=== PATIENT | male | born 1955 | race Caucasian/White ===

== ENCOUNTER 2022-01-21 09:29 | Inpatient (IN) | payer MEDICARE, MEDICAID ==
[~2022-01-21] VITALS: Ht 182.9 cm; Wt 131.8 kg
--- NOTE | 2022-01-21 08:30 | NUR ---
Pt arrived via EMS, awake to name, knows that he is at a hospital. D10 fluids infusing, Dr English on unit to give orders. IV in place C/D/I.
[2022-01-21 09:20] VITALS: BP 151/92
[~2022-01-21 09:29] MED LIST: AMIO200T53 PO; BACL20TA PO; CARV25TA2 PO; CLOP75TA PO; DABI150C PO; DOCU100C28 PO; DULA1.5P SQ; ERGO500089 PO; ESCITALOPRAM OX10 MG PO; FERR325T14 PO; FLUTICASONE FUROATE INH; FOLI0.8C PO; HYDR2TAB PO; HYDR4TAB PO; INSU100V38 SQ; IPRA0.2S5 NEB; ISOS60TA55 PO; LEVO100T5 PO; LIPITOR80 MG PO; MONT10TA49 PO; OXYC5CAP PO; PANT40TA77 PO; PREG-9 PO; RANITIDINE HCL; RANO10002 PO; SENN1TAB37 PO; TAMS0.4C97 PO; [UNRECOGNIZED DRUG - CODE] PO
[2022-01-21 10:00] VITALS: BP 135/68
[2022-01-21] MEDS ORDERED: IPRATROPIUM BROMIDE 0.5 MG/2.5 ML NEBU. NEB PRN (10:00)
[2022-01-21 11:00] VITALS: BP 128/64
[2022-01-21] MEDS: INSULIN LISPRO 300 UNITS/3 ML VIAL. SQ SCH ×2 (11:23→17:00)
[2022-01-21] MEDS ORDERED: IV NORMAL SALINE 1000ML BAG 1,000 ML IV ONE (11:30)
--- NOTE | 2022-01-21 13:22 | HP ---
DATE OF SERVICE: 01/21/2022 ADMIT DATE: 01/21/2022 HISTORY OF PRESENT ILLNESS: The patient is a 66-year-old male patient who is a resident at [facility] who was brought to the Emergency Room of [facility] with altered mental status and hypoglycemia. She has been a resident at [facility] since 08/26/2021. He was found to have mental status change. The patient at the correction was found to have hypoglycemia with a blood glucose of 56, was given oral glucose, but no significant change in his mental status. Paramedics advised on their arrival that his glucose check was only 21 mg. After a bolus of D10 at 150 mL, the patient's mental status improved. He reportedly has had no recent change in his diabetic medication. On further evaluation in the Emergency Room, he apparently required 3 additional doses of D50 to maintain his blood sugar within acceptable range and he was found also to be hypothermic with a temperature down to 93.4. He was initially admitted to [facility], but eventually a decision was made to transfer him to [facility] ICU for rewarming with a Waldo Hugger and also to continue with D10W. When I saw him on arrival here, he was sleepy, but arousable. He answered his question appropriately and even knew that he was at [facility]. He has extensive investigation done in the Emergency Room of [facility]. His CBC showed that he has normochromic normocytic anemia. His chemistry was remarkable for mild hypokalemia and chronic kidney disease with a serum creatinine of 2.4. However, his baseline is about 1.6. He has had imaging studies done, which included CT scan of the head, which showed no evidence of acute intracranial process, white matter changes, likely chronic small vessel disease. His chest x-ray showed that the heart is moderately enlarged. Stable cardiac generator that obscures the portion of the left chest with leads in stable position. Mediastinal and hilar contours are stable, patchy bibasilar airspace opacities are grossly stable. No pleural effusion or pneumothorax. The patient was therefore transferred to [facility] with hypothermia and hypoglycemia. PAST MEDICAL HISTORY: Significant for type 2 diabetes mellitus, longstanding hypertension, hyperlipidemia, coronary artery disease status post myocardial infarction. He underwent percutaneous coronary intervention with stent deployment x9. According to him in 2018, he has also coronary artery bypass graft surgery and cardiac arrest x2. He apparently had left upper extremity compartment syndrome that required fasciotomy, has lung nodules that is followed closely, had acute kidney injury twice, once with compartment syndrome when he was at [facility] for 2 months and a year ago, he developed another episode of acute kidney injury, treated with IV fluid. He is also known to have benign prostatic hypertrophy, TIA, chronic obstructive pulmonary disease, obstructive sleep apnea. He is currently on 2 liters of oxygen by nasal cannula. PAST SURGICAL HISTORY: Significant for PCI with stent deployment x9, coronary artery bypass graft surgery, fasciotomy, L4-L5 laminectomy and partial thyroidectomy. ALLERGIES: HE IS ALLERGIC TO LEVOFLOXACIN AND NIACIN. FAMILY HISTORY: He has one sister who has coronary artery disease. His father in his 60s and the mother who in her 60s due to congestive heart failure. SOCIAL HISTORY: He is , has 2 daughters alive, has one daughter when she was only 4 months old. One son because of congenital heart disease at the age of 10 years and 1 son was electrocuted. He continues to smoke about 6 cigarettes a day. He does not drink alcohol or use recreational drugs. He is currently retried. 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 MEDICATIONS: He was on albuterol sulfate by nebulizer 4 times a day, ferrous sulfate 325 mg once a day, Pradaxa 150 mg twice a day, Plavix 75 mg once a day, amiodarone 200 mg once a day. He is on Ranexa 1000 mg twice a day, atorvastatin calcium 80 mg at bedtime, isosorbide mononitrate 60 mg daily, carvedilol 12.5 mg twice a day, hydromorphone 2 mg p.o. b.i.d. and hydromorphone 0.5 mg at noon. He is on oxycodone 10 mg extended release twice a day and oxycodone immediate release 5 mg at noon, pregabalin 150 mg twice a day, escitalopram oxalate 10 mg daily, bumetanide 2 mg daily, montelukast 10 mg once a day, ranitidine 150 mg, he gets actually 300 mg once a day with meals. He is also on Jardiance 10 mg daily and levothyroxine sodium 300 mcg once a day. REVIEW OF SYSTEMS: As per history of present illness. PHYSICAL EXAMINATION: GENERAL: On arrival to the Emergency Room, the patient was somewhat pale, but no jaundice, cyanosis or thyromegaly. No jugular venous distention. No lower limb edema. VITAL SIGNS: His heart rate was 76, blood pressure 153/87, temperature was 93.4, respiratory rate was 16 and oxygen saturation was 93% on room air. HEAD, EYES, EARS, NOSE, AND THROAT: Showed normocephalic, atraumatic. NECK: Supple. HEART: Showed normal first and second heart sounds. No gallop, rub or murmur. CHEST: Showed central trachea, equal bilateral chest expansion, air entry, vesicular breath sounds with scattered rhonchi and bibasilar crackles bilaterally. ABDOMEN: Soft, nontender. No guarding or rigidity. No organomegaly. All hernial orifice intact. Bowel sounds normal. NEUROLOGIC: The patient was alert and oriented x 3, moves all extremities , plantar is sensory: No new focal deficits reported. LABORATORY DATA: While in the Emergency Room, has had lab work done, which showed a white cell count of 7.6, hemoglobin 11.6, hematocrit 34.5, MCV 101 and platelet count of 189,000. When he arrived to the Emergency Room, his blood sugar was 129 mg/dL, his serum sodium was 144, potassium 3.4, chloride 103, bicarbonate 36, anion gap of 5, BUN 47, creatinine 2.8. Estimated GFR was 22 mL per minute. His glucose 104, calcium was 8.7. Total bilirubin, AST, ALT, alkaline phosphatase were normal. His troponin I high sensitivity was 12. His total protein 6.6, albumin 3. Urinalysis showed the urine was yellow, clear with a pH of 7, specific gravity of 1.020. The urine was negative for protein, glucose, ketones, blood, and nitrite was negative also for leukocyte esterase, 0 rbc's, 0 wbc's and no bacteria. His influenza A and B were negative and his coronavirus by rapid antigen testing was negative. DIAGNOSTIC DATA: His CT scan of the head showed the patient has no evidence of acute intracranial process, white matter changes, likely chronic small vessel disease. His chest x-ray showed the heart is moderately enlarged and stable cardiac generator pack obscures a portion of the left chest wall with leads in stable position. Mediastinal and hilar contours are stable. Patchy bibasilar airspace opacities are grossly stable. No pleural effusion or pneumothorax. PLAN: My plan is to continue with D10W, continue to monitor his blood sugar hourly and once stabilized and the patient is able to eat and drink, we will start him on all his medications. I will definitely obviously hold any nephrotoxic medication. Once he becomes normothermic, he can be transferred to the floor. ZITA/HUGO DR: Cydney TID: [id number]
[2022-01-21 15:00] VITALS: BP 127/72
[2022-01-21] MEDS: CLOPIDOGREL BISULFATE 75 MG TABLET PO SCH (18:15)
[2022-01-21] MEDS: CARVEDILOL 12.5 MG TABLET. PO SCH (18:15)
[2022-01-21] MEDS: PANTOPRAZOLE 40 MG TABLET.DR. PO SCH (18:16)
[2022-01-21] MEDS: oxyCODONE IR 5 MG TABLET PO PRN (18:16)
[2022-01-21] MEDS: FERROUS SULFATE 325 MG TABLET. PO SCH (18:16)
[2022-01-21] MEDS: IV DEXTROSE 10% 1,000 ML IV SCH (18:17)
[2022-01-21 19:00] VITALS: BP 115/50
--- NOTE | 2022-01-21 19:28 | NUR ---
Spoke with Nurse at [facility], says pt tested positive for covid 19 on Nov 17, 2021. Reported to CNO Verenice Longoria, isolation not indicated.
[2022-01-21] MEDS: BACLOFEN 10 MG TABLET. PO SCH (21:33)
[2022-01-21] MEDS: DABIGATRAN ETEXILATE 150 MG CAPSULE. PO SCH (21:33)
[2022-01-21] MEDS: MONTELUKAST SODIUM 10 MG TABLET. PO SCH (21:33)
[2022-01-21] MEDS: RANOLAZINE 500 MG TAB.ER.12H PO SCH (21:33)
[2022-01-21] MEDS: HYDROmorphone 2 MG TABLET PO SCH (21:34)
[2022-01-21] MEDS: PREGABALIN 75 MG CAPSULE PO SCH (21:34)
[2022-01-21] MEDS: SENNOSIDES/DOCUSATE 8.6/50MG TABLET. PO SCH (21:34)
[2022-01-21] MEDS: ATORVASTATIN CALCIUM 40 MG TABLET. PO SCH (21:34)
[2022-01-21] MEDS: TAMSULOSIN 0.4 MG CAP.ER.24H. PO SCH (21:34)
[2022-01-21] MEDS: DOCUSATE SODIUM 100 MG CAPSULE. PO SCH (21:34)
[2022-01-21 23:00] VITALS: BP 133/66
[2022-01-22] VITALS (7 sets, daily range): BP systolic 115–133; BP diastolic 50–65
[2022-01-22] MEDS: IV DEXTROSE 10% 1,000 ML IV SCH ×2 (00:50→12:00)
[2022-01-22 05:26] LABS: BASO # 0.1 x10^3/uL (0.0-0.2); BASO % 1 % (0-3); EOS # 0.1 x10^3/uL (0.0-0.7); EOS % 1 % (0-3); HEMATOCRIT 31.3 % (39.0-53.0); HEMOGLOBIN 10.2 g/dL (13.0-17.5); LYMPH # 1.6 x10^3/uL (1.0-4.8); LYMPH % 20 % (24-48); MEAN CORPUSCULAR HEMOGLOBIN 33 pg (25-35); MEAN CORPUSCULAR HGB CONC 33 g/dL (31-37); MEAN CORPUSCULAR VOLUME 102 fL (79-100); MONO # 0.7 x10^3/uL (0.0-1.1); MONO % 9 % (0-9); NEUT # 5.7 x10^3/uL (1.8-7.7); NEUT % 69 % (31-73); PLATELET COUNT 193 x10^3/uL (140-400); RED BLOOD COUNT 3.07 x10^6/uL (4.30-5.70); RED CELL DISTRIBUTION WIDTH 16.6 % (11.5-14.5); WHITE BLOOD COUNT 8.2 x10^3/uL (4.0-11.0)
[2022-01-22 06:28] LABS: ALBUMIN 2.8 g/dL (3.4-5.0); ALBUMIN/GLOBULIN RATIO 0.7 (1.0-1.7); CALCIUM 8.7 mg/dL (8.5-10.1); CREATININE 2.4 mg/dL (0.7-1.3); GFR 27.1; POTASSIUM 4.3 mmol/L (3.5-5.1); TOTAL BILIRUBIN 0.4 mg/dL (0.2-1.0)
[2022-01-22] MEDS: LEVOTHYROXINE 100 MCG TABLET PO SCH (06:29)
[2022-01-22] MEDS: INSULIN LISPRO 300 UNITS/3 ML VIAL. SQ SCH ×3 (08:00→17:45)
[2022-01-22] MEDS: ISOSORBIDE MONONITRATE ER 30 MG TAB.ER.24H PO SCH (08:28)
[2022-01-22] MEDS: HYDROmorphone 2 MG TABLET PO SCH ×2 (08:29→20:57)
[2022-01-22] MEDS: DABIGATRAN ETEXILATE 150 MG CAPSULE. PO SCH ×2 (08:29→20:57)
[2022-01-22] MEDS: CLOPIDOGREL BISULFATE 75 MG TABLET PO SCH (08:29)
[2022-01-22] MEDS: RANOLAZINE 500 MG TAB.ER.12H PO SCH ×2 (08:30→20:58)
[2022-01-22] MEDS: CARVEDILOL 12.5 MG TABLET. PO SCH ×2 (08:31→17:33)
[2022-01-22] MEDS: FOLIC ACID 1 MG TABLET. PO SCH (08:31)
[2022-01-22] MEDS: CYANOCOBALAMIN (VITAMIN B-12) 1,000 MCG TABLET. PO SCH (08:31)
[2022-01-22] MEDS: FERROUS SULFATE 325 MG TABLET. PO SCH (08:31)
[2022-01-22] MEDS: AMIODARONE HCL 200 MG TABLET. PO SCH (08:31)
[2022-01-22] MEDS: FAMOTIDINE 20 MG TABLET. PO SCH (08:32)
[2022-01-22] MEDS: CITALOPRAM 20 MG TABLET. PO SCH (08:32)
[2022-01-22] MEDS: FLUTICASONE 50MCG/NASAL SPRAY 16GM BOTTLE. NS SCH (08:32)
[2022-01-22] MEDS: DOCUSATE SODIUM 100 MG CAPSULE. PO SCH ×2 (08:32→20:58)
[2022-01-22] MEDS: PANTOPRAZOLE 40 MG TABLET.DR. PO SCH (08:32)
[2022-01-22] MEDS ORDERED: IV NORMAL SALINE 500ML BAG 500 ML IV ONE (09:15)
--- NOTE | 2022-01-22 09:36 | PN ---
DATE: 01/22/2022 SUBJECTIVE: The patient is awake, alert. On questioning him, he denied any complaint and would like to go back to [place]. PHYSICAL EXAMINATION: GENERAL: When I examined him, he looked well and was clearly in no apparent respiratory distress, pale, not jaundiced or cyanosed, no lymphadenopathy, no thyromegaly, no jugular venous distention. No lower limb edema. VITAL SIGNS: His heart rate was 67, blood pressure was 133/58, temperature was 97.7, respiratory rate was 22. His oxygen saturation was 98% on room air. HEAD, EYES, EARS, NOSE, AND THROAT: Normocephalic, atraumatic. NECK: Supple. HEART: Showed normal first and second heart sounds. No gallop or murmur. CHEST: Clear to auscultation. No crepitation or rhonchi. ABDOMEN: Distended, soft, nontender. NEUROLOGIC: He is awake, alert, responding appropriately. All cranial nerves intact. He moves extremities without difficulty. He usually ambulates with a walker, but is able to ambulate without any assistance or assistive devices for short distances. His intake was 3300, output was 2075. LABORATORY DATA: This morning showed a white cell count of 8.2, hemoglobin 10, hematocrit 31, MCV 102 and platelet count of 193,000. His chemistry showed a serum sodium 136, potassium 4.3, chloride 97, bicarbonate 31, anion gap of 8, BUN 39, creatinine 2.4. His estimated GFR was 27 mL per minute. His glucose 192, calcium was 8.7. Total bilirubin, AST, ALT, alkaline phosphatase were normal. Total protein 7, albumin was 2.8. ASSESSMENT: 1. Intractable hypoglycemia, resolved. The patient was on D10 and his blood sugar has finally normalized. His blood sugar this morning was 140. 2. Acute on chronic kidney injury. His creatinine went up from 1.6 to 2.8, this morning is down to 2.4. 3. The patient has multiple other medical problems including: A. Type 2 diabetes mellitus. B. Hypertension. C. Hyperlipidemia. D. Coronary artery disease status post myocardial infarction. E. He underwent PCI and coronary artery bypass graft surgery. PLAN: He is normally on Trulicity at [place] and he is also on Humalog insulin 3 units before meals. I will consult the physical and occupational therapy. We will continue with IV fluid in the form of normal saline and I will be discharged back to [facility] tomorrow. His kidney function has returned back to baseline. SUNDAR/LASHONDA DR: Cydney TID: [id number]
[2022-01-22 13:42] LABS: CALCIUM 8.7 mg/dL (8.5-10.1); CREATININE 2.3 mg/dL (0.7-1.3); GFR 28.4; POTASSIUM 3.6 mmol/L (3.5-5.1)
--- NOTE | 2022-01-22 16:17 | NUR ---
SS following for discharge planning. SS reviewed pt chart and discussed with pt RN. Pt is LTC resident from [facility], ; fax [phone]. Pt is currently on room air. Clinical updates phoned and faxed to [facility]. Possible discharge back to facility tomorrow. Per facility, no COVID19 test required as pt is within his 90 days. SS will continue to follow for discharge planning.
[2022-01-22] MEDS: ATORVASTATIN CALCIUM 40 MG TABLET. PO SCH (20:57)
[2022-01-22] MEDS: PREGABALIN 75 MG CAPSULE PO SCH (20:57)
[2022-01-22] MEDS: MONTELUKAST SODIUM 10 MG TABLET. PO SCH (20:58)
[2022-01-22] MEDS: SENNOSIDES/DOCUSATE 8.6/50MG TABLET. PO SCH (20:58)
[2022-01-22] MEDS: BACLOFEN 10 MG TABLET. PO SCH (20:58)
[2022-01-22] MEDS: TAMSULOSIN 0.4 MG CAP.ER.24H. PO SCH (20:58)
[2022-01-23 03:00] VITALS: BP 133/59
[2022-01-23] MEDS: LEVOTHYROXINE 100 MCG TABLET PO SCH (06:09)
[2022-01-23 06:54] LABS: CREATININE 1.9 mg/dL (0.7-1.3); GFR 35.4; POTASSIUM 3.5 mmol/L (3.5-5.1)
[2022-01-23 07:00] VITALS: BP 136/54
--- NOTE | 2022-01-23 08:40 | SNU/HH DC ---
DISCHARGE ORDERS DISCHARGE INFORMATION: DISCHARGE DATE: Jan 23, 2022 FINAL DIAGNOSIS hypoglycemia A/C KIDNEY INJURY CONDITION ON DISCHARGE: Stable CODE STATUS: Code Status: Full HALF-WAY: SNF STAY <30 DAYS: No POST DISCHARGE ORDERS: ACTIVITY ORDERS: Resume previous activity, Activity as tolerated DIET AFTER DISCHARGE: ADA DISCHARGE MEDICATIONS: Home Meds Reported Medications Hydromorphone Hcl (HYDROMORPHONE HCL) 2 Mg Tablet, 2 MG PO BID for pain, TAB 07/16/20 [fluticasone fur.] No Conflict Check, 1 INH DAILY for COPD 07/15/20 Escitalopram Oxalate (ESCITALOPRAM OXALATE) 10 Mg Tablet, 1 TAB PO DAILY for mood , #30 TAB 3 Refills 07/14/20 Docusate Sodium (DOCUSATE SODIUM) 100 Mg Capsule, 1 CAP PO BID for constipation for 7 Days, #14 CAP 0 Refills 07/14/20 Baclofen (BACLOFEN) 20 Mg Tablet, 1 TAB PO HS for muslce relaxer , #90 TAB 2 Refills 07/14/20 Sennosides/Docusate Sodium (SENNOSIDES-DOCUSATE SODIUM TAB) 1 Each Tablet, 2 TAB PO HS for constipation for 30 Days, #60 TAB 0 Refills 07/14/20 Pregabalin (LYRICA) 75 Mg Capsule, 1 CAP PO HS for pain , #60 CAP 1 Refill 07/14/20 Oxycodone Hcl (OXYCODONE HCL) 5 Mg Capsule, 10 MG PO TID PRN for PAIN, TAB 0 Refills 07/14/20 Ipratropium [place] (IPRATROPIUM BROMIDE) 0.2 Mg/1 Ml Solution, 1 VIAL NEB QID PRN for SHORTNESS OF BREATH, #300 ML 5 Refills 07/14/20 Carvedilol (CARVEDILOL) 25 Mg Tablet, 12.5 MG PO BIDWMEALS for CARDIAC, TAB 07/14/20 Atorvastatin Calcium (LIPITOR) 80 Mg Tablet, 1 TAB PO DAILY for cholesterol lowering agent , #30 TAB 5 Refills 07/14/20 Tamsulosin Hcl (FLOMAX) 0.4 Mg Cap.er.24h, 0.4 MG PO HS for BPH, TAB 07/14/20 Ranolazine (RANEXA) 1,000 Mg Tab.er.12h, 1 TAB PO BID for Angina for 30 Days, #60 TAB 0 Refills 07/14/20 [Ranitidine HCL] No Conflict Check, 300 MG DAILY for GERD 07/14/20 Pantoprazole Sodium (PANTOPRAZOLE SODIUM ) 40 Mg Tablet.dr, 40 MG PO DAILYAC for GERD, TAB 07/14/20 Montelukast Sodium (MONTELUKAST SODIUM TABLET ) 10 Mg Tablet, 10 MG PO HS for FOR ASTHMA, TAB 0 Refills 07/14/20 Mecobalamin (B-12) 5,000 Mcg Tab.rapdis, 5000 MCG PO DAILY for supplement , TAB 07/14/20 Levothyroxine Sodium (LEVOTHYROXINE SODIUM) 100 Mcg Tablet, 3 TAB PO DAILY for thyroid supplement , #30 TAB 5 Refills 07/14/20 Isosorbide Mononitrate (ISOSORBIDE MONONITRATE ER) 60 Mg Tab.er.24h, 1 TAB PO DAILY for nitrate, heart medication , #30 TAB 5 Refills 07/14/20 Insulin Lispro (Insulin Lispro) 100 Unit/1 Ml Vial, 3 UNIT SQ TIDAC for diabetes , EACH 07/14/20 Folic Acid (Folic Acid) 0.8 Mg Capsule, 1 CAP PO DAILY for supplement for 30 Da ys, #30 CAP 0 Refills 07/14/20 Ferrous Sulfate (FERROUS SULFATE) 325 Mg Tablet, 1 TAB PO DAILY for iron sup plement , #30 TAB 3 Refills 07/14/20 Ergocalciferol (Vitamin D2) (Vitamin D2) 1,250 Mcg Capsule, 1250 MCG PO TWICE WEEKLY for supplement , CAP 07/14/20 Dulaglutide (Trulicity) 1.5 Mg/0.5 Ml Pen.injctr, 1.5 MG SQ QTU for diabetes, EACH 07/14/20 Dabigatran Etexilate Mesylate (PRADAXA) 150 Mg Capsule, 1 CAP PO BID for blood thinner , #180 CAP 1 Refill 07/14/20 Clopidogrel Bisulfate (CLOPIDOGREL) 75 Mg Tablet, 1 TAB PO DAILY for blood thinner , #90 TAB 1 Refill 07/14/20 Amiodarone Hcl (AMIODARONE HCL) 200 Mg Tablet, 1 TAB PO DAILY for heart rhythm , #90 TAB 1 Refill 07/14/20 CATALINA HEALY MD Jan 23, 2022 08:40
[2022-01-23] MEDS: CYANOCOBALAMIN (VITAMIN B-12) 1,000 MCG TABLET. PO SCH (09:00)
[2022-01-23] MEDS: FERROUS SULFATE 325 MG TABLET. PO SCH (09:00)
[2022-01-23] MEDS: FAMOTIDINE 20 MG TABLET. PO SCH (09:00)
[2022-01-23] MEDS: oxyCODONE IR 5 MG TABLET PO PRN ×2 (09:01→15:54)
[2022-01-23] MEDS: CLOPIDOGREL BISULFATE 75 MG TABLET PO SCH (09:01)
[2022-01-23] MEDS: PANTOPRAZOLE 40 MG TABLET.DR. PO SCH (09:01)
[2022-01-23] MEDS: AMIODARONE HCL 200 MG TABLET. PO SCH (09:01)
[2022-01-23] MEDS: RANOLAZINE 500 MG TAB.ER.12H PO SCH (09:01)
[2022-01-23] MEDS: DABIGATRAN ETEXILATE 150 MG CAPSULE. PO SCH (09:02)
[2022-01-23] MEDS: CITALOPRAM 20 MG TABLET. PO SCH (09:02)
[2022-01-23] MEDS: FOLIC ACID 1 MG TABLET. PO SCH (09:02)
[2022-01-23] MEDS: CARVEDILOL 12.5 MG TABLET. PO SCH ×2 (09:02→17:00)
[2022-01-23] MEDS: HYDROmorphone 2 MG TABLET PO SCH (09:02)
[2022-01-23] MEDS: ISOSORBIDE MONONITRATE ER 30 MG TAB.ER.24H PO SCH (09:02)
[2022-01-23] MEDS: DOCUSATE SODIUM 100 MG CAPSULE. PO SCH (09:02)
[2022-01-23] MEDS: FLUTICASONE 50MCG/NASAL SPRAY 16GM BOTTLE. NS SCH (09:03)
[2022-01-23] MEDS: INSULIN LISPRO 300 UNITS/3 ML VIAL. SQ SCH ×2 (09:07→13:46)
--- NOTE | 2022-01-23 09:25 | DS ---
DATE OF DISCHARGE: 01/23/2022 HOSPITAL COURSE: The patient is a 66-year-old male patient, a [facility] at [facility], who was brought to the Emergency Room of [facility] with altered mental status and was found to be hypoglycemic. His blood sugar at the custodial was 56 and was given oral glucose, but no significant change in his mental status. Paramedics advised on their arrival that his blood glucose check was only 21 mg. After a bolus of D10 of 150 mL, the patient's mental status improved; however, he continued to require D10W and therefore, the patient was transferred to [facility] as he was found to be also hypothermic. He was admitted to the ICU where he was continued on D10W infusion and was started on Waldo Hugger. His blood sugar eventually stabilized. The patient's mental status improved. He is able to eat and drink. His temperature has normalized. When I saw him this morning, he was resting slightly propped up in bed, in no apparent respiratory distress. He is awake, alert, responding appropriately. On questioning him, he denied any complaint. The nursing staff did not voice any concern. His blood sugar is well within normal range. He also was noted to have acute kidney injury. His baseline creatinine was about 1.8 and when he came, his creatinine went up to 2.8. I did start him on IV fluid. His kidney function has finally returned back to its baseline and therefore, he is now normoglycemic and normothermic. His kidney function has stabilized and back to baseline and therefore, decision was made to discharge him back to [facility]. PHYSICAL EXAMINATION: GENERAL: When I saw him this morning, he looked well and was clearly in no apparent respiratory distress. No pallor, jaundice, cyanosis or thyromegaly. No jugular venous distention. No lower limb edema. VITAL SIGNS: His heart rate was 69, blood pressure was 133/59, temperature 97.7, respiratory rate 22, and oxygen saturation was 96%. HEAD, EYES, EARS, NOSE, AND THROAT: Normocephalic, atraumatic. NECK: Supple. HEART: Showed normal first and second heart sounds. No gallop or murmur. CHEST: Clear to auscultation, no crepitation or rhonchi. ABDOMEN: Distended, soft, nontender. NEUROLOGIC: He is awake, alert, responding appropriately. All cranial nerves are intact. He moves extremities without difficulty. He ambulates with a walker. His intake over the last 24 hours was 3300, output was 2075. LABORATORY DATA: His chemistry this morning showed a serum sodium 140, potassium 3.5, chloride 108, bicarbonate 27, anion gap of 5, BUN 37, creatinine 1.9, estimated GFR was 35 mL per minute. His glucose 146 and calcium was 7. His white cell count was 8.2, hemoglobin 10, hematocrit 30, MCV 102 and platelet count 193,000. ASSESSMENT: 1. Hypoglycemia, likely due to worsening kidney function. His blood sugar has been normalized. 2. Acute on chronic kidney injury. His creatinine came down from 2.8-1.9. 3. Hyponatremia, likely due to hypoglycemia, has resolved. He is now normothermic with temperature of 97.7. 4. The patient has multiple other medical problems including: A. Type 2 diabetes mellitus. B. Hypertension. C. Hyperlipidemia. D. Coronary artery disease, status post myocardial infarction. E. He underwent PCI as well as coronary artery bypass graft surgery. F. He has episodes of acute kidney injury that required hemodialysis temporarily. The patient was discharged back to [facility] to continue on all his medications. JAREN DR: Cydney TID: [id number]
--- NOTE | 2022-01-23 10:07 | NUR ---
SS following up with discharge planning. SS reviewed pt chart and discussed with pt RN. Discharge orders received for return to [facility], ; fax [phone]. Discharge orders sent to facility. Pt will discharge today and return to [facility]. Facility to provide transportation and will notify SS of turkey picker time. Pt and pt's RN notified. Packet placed on chart.
[2022-01-23 11:00] VITALS: BP 142/54
[2022-01-23 15:00] VITALS: BP 130/68
[2022-01-23 17:00] VITALS: BP 130/68
--- NOTE | 2022-01-23 17:22 | NUR ---
Discharged patient via wheelchair van to [facility]. Reviewed discharge medications with SELINA Koenig at [facility], some changes were made to the medication list per TOV Dr. English. Pt A/Ox4, vital signs stable, pt dressed, with house shoes and belongings sent with-cell phone, rn case management, snacks and soda.
[2022-01-28] MEDS ORDERED: ERGOCALCIFEROL (VITAMIN D2) 50,000 UNIT CAPSULE. PO SCH (09:00)
== END 2022-01-23 17:34 | DRG 638 ==
LOC: 1 WEST ICU 09:29
PROVIDERS: ADMIT Internal Medicine; ATTEND Internal Medicine
DX: E11.649 Type 2 diabetes mellitus with hypoglycemia without coma (principal); E87.1 Hypo-osmolality and hyponatremia; I12.9 Hypertensive chronic kidney disease with stage 1 through stage 4 chronic kidney disease, or unspecified chronic kidney disease; N17.0 Acute kidney failure with tubular necrosis; E11.22 Type 2 diabetes mellitus with diabetic chronic kidney disease; D64.9 Anemia, unspecified; E78.5 Hyperlipidemia, unspecified; E87.6 Hypokalemia; F17.210 Nicotine dependence, cigarettes, uncomplicated; I25.10 Atherosclerotic heart disease of native coronary artery without angina pectoris; I25.2 Old myocardial infarction; J44.9 Chronic obstructive pulmonary disease, unspecified; N18.9 Chronic kidney disease, unspecified; N40.0 Benign prostatic hyperplasia without lower urinary tract symptoms; Z63.4 Disappearance and death of family member; Z82.49 Family history of ischemic heart disease and other diseases of the circulatory system; Z86.73 Personal history of transient ischemic attack (TIA), and cerebral infarction without residual deficits; Z86.74 Personal history of sudden cardiac arrest; Z95.1 Presence of aortocoronary bypass graft; Z95.5 Presence of coronary angioplasty implant and graft; G47.33 Obstructive sleep apnea (adult) (pediatric)
CPT/HCPCS: 36415; 80048; 80053; 82962; 85025; J3490; J7030; J7040; 97530-GP; G0378